=== PATIENT | male | born 1940 | race Caucasian/White ===

== ENCOUNTER 2018-08-09 07:43 | Day surgery (SDC) | payer OTHER, BC ==
[2018-08-06 14:56] VITALS: BMI 26.6
[2018-08-09 09:23] VITALS: TEMP 97.5
[2018-08-09 10:37] VITALS: BP 115/62; PULSE 62
--- NOTE | 2018-08-10 16:44 | PATH ---
Surgical Pathology Report Patient Name: LINO AVILES JR [facility]. Rec. #: [id number] /Age/Gender: 1940 (Age: 78) / M Account: [id number] Location: [facility]-ENDOSCOPY Taken: 08/09/2018 Received: 08/09/2018 Reported: 08/10/2018 Physicians: John Paul Busch M.D. Specimen(s) Received A: BX 2ND PORTION DUODENUM AND DUODENAL BULB B: BX ANTRUM C: BX GE JUNCTION D: RECTAL POLYP Clinical History Family history of esophageal cancer Postoperative diagnosis: Hiatal hernia, GERD, gastritis, duodenitis, colon polyp, diverticulosis Final Diagnosis A. DUODENUM, SECOND PORTION AND DUODENAL BULB, BIOPSY: DUODENAL MUCOSA WITH MILD ACUTE AND CHRONIC DUODENITIS. B. STOMACH, ANTRUM, BIOPSY: GASTRIC ANTRAL MUCOSA WITH MILD CHRONIC GASTRITIS. IMMUNOHISTOCHEMICAL STAIN FOR H. PYLORI IS NEGATIVE. C. GE JUNCTION, BIOPSY: SQUAMOUS MUCOSA WITH FOCAL PARAKERATOSIS, BASAL CELL HYPERPLASIA, MILD ACUTE AND CHRONIC INFLAMMATION CONSISTENT WITH MILD REFLUX ESOPHAGITIS. PAS SPECIAL STAIN FOR FUNGUS IS NEGATIVE. D. RECTUM, POLYP, BIOPSY: TUBULAR ADENOMA. Electronically Signed Martha Woody M.D. Gross Description A. Received in formalin, labeled "biopsy second portion of duodenum and duodenal bulb" are 4 perkins, irregular portions of soft tissue ranging from 0.3-0.4 cm. in greatest dimension. The specimens are submitted in toto in one cassette. B. Received in formalin, labeled "biopsy antrum" are 5 perkins, irregular portions of soft tissue ranging from 0.1-0.5 cm. in greatest dimension. The specimens are submitted in toto in one cassette. C. Received in formalin, labeled "biopsy GE junction" are 3 perkins, irregular portions of soft tissue ranging from 0.3-0.7 cm. in greatest dimension. The specimens are submitted in toto in one cassette. D. Received in formalin, labeled "biopsy rectal polyp" are 4 perkins, irregular portions of soft tissue ranging from 0.2-0.3 cm. in greatest dimension. The specimens are submitted in toto in one cassette. DL/08/09/2018 saudi/08/09/2018
== END 2018-08-09 10:30 | disposition home or self-care (01) ==
LOC: JASU-ENDO 07:43
PROVIDERS: ATTEND Internal Medicine Gastroenterology
PROC: 0DB98ZX Excision of Duodenum, Via Natural or Artificial Opening Endoscopic, Diagnostic (ICD-10-PCS; 2018-08-09)
PROC: 0DBP8ZX Excision of Rectum, Via Natural or Artificial Opening Endoscopic, Diagnostic (ICD-10-PCS; principal; 2018-08-09 08:30)
DX: Z12.11 Encounter for screening for malignant neoplasm of colon (principal); Z86.010 Personal history of colon polyps; K62.1 Rectal polyp; K64.8 Other hemorrhoids; K57.30 Diverticulosis of large intestine without perforation or abscess without bleeding; K21.9 Gastro-esophageal reflux disease without esophagitis; K44.9 Diaphragmatic hernia without obstruction or gangrene; K29.60 Other gastritis without bleeding; K29.80 Duodenitis without bleeding
CPT/HCPCS: 88305-TC; 88312-TC; 88342-TC

== ENCOUNTER 2021-09-25 05:37 | Inpatient (IN) | payer OTHER, BC ==
[2021-09-23 13:30] VITALS: BMI 26.4
[~2021-09-25 05:37] MED LIST: CEFAZOLIN 2 GM/D5W 2 GM/50 ML ML IVPB ONE
[2021-09-25] MEDS ORDERED: POVIDONE-IODINE OINTMENT 10% - 28.4 GM TUBE ONE (07:25)
[2021-09-25] MEDS ORDERED: HEPARIN NA (PORCINE) 5,000 UNITS/ML 1ML VIAL ONE (07:25)
[2021-09-25] MEDS ORDERED: LIDOCAINE HCL 0.5%, 5 MG/ML (50mL SDVIAL) ONE (07:25)
[2021-09-25] MEDS ORDERED: SUCCINYLCHOLINE CHLORIDE 200 MG/10 ML SYRINGE ONE (07:32)
[2021-09-25] MEDS ORDERED: PROPOFOL 20 ML ONE ×3 (07:32→08:06)
[2021-09-25] MEDS ORDERED: ROCURONIUM BROMIDE 50 MG/5 ML SYRINGE ONE (07:33)
[2021-09-25 07:41] LABS: INR 1.11 (0.83-1.09); PROTHROMBIN TIME (PATIENT) 12.5 SEC (9.7-13.0)
[2021-09-25] MEDS ORDERED: DEXMEDETOMIDINE HCL 200 MCG/2 ML IVPB ONE (08:03)
[2021-09-25] MEDS ORDERED: KETAMINE HCL 200 MG/20 ML VIAL ONE (08:07)
[2021-09-25] MEDS ORDERED: ceFAZolin SODIUM 1 GM VIAL IVPB ONE (08:35)
[2021-09-25] MEDS ORDERED: PHENYLEPHRINE HCL 10 MG/1 ML SINGLE DOSE VIAL ONE (10:42)
[2021-09-25] MEDS ORDERED: NEOSTIGMINE METHYLSULFATE 0.5 MG/ML - 10 ML MDV ONE (10:42)
[2021-09-25] MEDS ORDERED: PROTAMINE SULFATE 50 MG/5 ML VIAL IVPB ONE (10:45)
[2021-09-25] MEDS ORDERED: POVIDONE-IODINE OINTMENT 10% - 28.4 GM TUBE TP ONE (10:45)
[2021-09-25] MEDS ORDERED: ONDANSETRON 4 MG/2 ML VIAL IVPUSH PRN (11:11)
[2021-09-25] MEDS ORDERED: SODIUM CHLORIDE 1,000 ML IV SCH (11:15)
[2021-09-25] MEDS ORDERED: traMADol HCL 50 MG TABLET PO PRN (11:54)
[2021-09-25] MEDS ORDERED: ONDANSETRON 4 MG/2 ML VIAL ONE (12:59)
[2021-09-25] MEDS: SODIUM CHLORIDE 1,000 ML IV SCH (14:20)
[2021-09-25] MEDS ORDERED: ONDANSETRON 4 MG/2 ML VIAL IVPUSH ONE (14:59)
[2021-09-25] MEDS: DOPAMINE 400 MG/D5W - 400,000 MCG/250 ML INFUS.BAG IVPB SCH (15:21)
[2021-09-25] MEDS ORDERED: TRIMETHOBENZAMIDE HCL 200MG/2ML INJ IM ONE (15:44)
[2021-09-25] MEDS ORDERED: INSULIN SLIDING SCALE (NOVOLOG) 1 VIAL SQ SCH (16:30)
[2021-09-25] MEDS: INSULIN SLIDING SCALE (NOVOLOG) 1 VIAL SQ SCH ×2 (16:30→22:26)
[2021-09-25 18:48] LABS: HEMATOCRIT 37.7 % (35.4-49); MCH 31.3 pg (25.7-33.7); MCHC 34.4 g/dl (32.0-35.9); MEAN PLT VOLUME 7.8 fl (7.5-11.1); PLATELET COUNT 185 10^3/uL (134-434); RBC 4.15 M/mm3 (4.00-5.60); RDW 13.9 % (11.9-15.9); WHITE BLOOD COUNT 10.7 K/mm3 (4.0-10.0)
[2021-09-25 19:03] LABS: CALCIUM 8.4 mg/dL (8.5-10.1)
[2021-09-25 19:04] LABS: BLOOD UREA NITROGEN 11.3 mg/dL (7-18); MAGNESIUM 2.3 mg/dL (1.8-2.4)
[2021-09-25 19:07] LABS: CREATININE 0.7 mg/dL (0.55-1.3)
[2021-09-25 19:08] LABS: TOT PROT 6.2 g/dl (6.4-8.2)
[2021-09-25 19:09] LABS: BILIRUBIN,TOTAL 0.4 mg/dL (0.2-1)
[2021-09-25] MEDS: CEFAZOLIN 2 GM in SODIUM CHLORIDE 100 ML IVPB SCH (19:16)
[2021-09-25] MEDS ORDERED: METOCLOPRAMIDE HCL INJECTION 10 MG/2 ML VIAL IVPUSH ONE (20:03)
[2021-09-25] MEDS ORDERED: MUPIROCIN 2% TOPICAL OINTMENT FOR DECOLONIZATION NS SCH (22:00)
[2021-09-25] MEDS ORDERED: CHLORHEXIDINE GLUCONATE 4% CLEANSER FOR DECOLONIZATION TP SCH (22:00)
[2021-09-25] MEDS: CARVEDILOL 3.125 MG TABLET (FP) PO SCH (22:25)
[2021-09-25] MEDS: MUPIROCIN 2% TOPICAL OINTMENT FOR DECOLONIZATION NS SCH (22:25)
[2021-09-25] MEDS: ACETAMINOPHEN 500 MG TABLET (FP) PO PRN (22:36)
[2021-09-26] MEDS: CEFAZOLIN 2 GM in SODIUM CHLORIDE 100 ML IVPB SCH (02:13)
[2021-09-26] MEDS: NICOTINE 14 MG/24 HOURS TOPICAL PATCH TD SCH ×3 (05:59→10:45)
[2021-09-26] MEDS: INSULIN SLIDING SCALE (NOVOLOG) 1 VIAL SQ SCH ×2 (06:00→12:13)
[2021-09-26] MEDS: ACETAMINOPHEN 500 MG TABLET (FP) PO PRN (06:25)
[2021-09-26 07:51] LABS: BASO % 0.4 % (0-2.0); EOS % 0.7 % (0-4.5); HEMATOCRIT 34.2 % (35.4-49); HEMOGLOBIN 11.9 GM/dL (11.7-16.9); LYMPH % 15.6 % (8-40); MCHC 34.8 g/dl (32.0-35.9); MEAN PLT VOLUME 8.5 fl (7.5-11.1); MONO % 11.4 % (3.8-10.2); NEUT % 71.9 % (42.8-82.8); PLATELET COUNT 190 10^3/uL (134-434); RBC 3.71 M/mm3 (4.00-5.60); RDW 14.1 % (11.9-15.9); WHITE BLOOD COUNT 9.5 K/mm3 (4.0-10.0)
[2021-09-26 08:14] LABS: CALCIUM 8.2 mg/dL (8.5-10.1)
[2021-09-26 08:15] LABS: ALBUMIN 2.8 g/dl (3.4-5.0); BLOOD UREA NITROGEN 8.2 mg/dL (7-18)
[2021-09-26 08:16] LABS: CREATININE 0.7 mg/dL (0.55-1.3)
[2021-09-26 08:18] LABS: BILIRUBIN,TOTAL 0.5 mg/dL (0.2-1)
[2021-09-26] MEDS ORDERED: NICOTINE 14 MG/24 HOURS TOPICAL PATCH TD SCH (10:00)
[2021-09-26] MEDS: HEPARIN NA (PORCINE) 5,000 UNITS/ML 1ML VIAL SQ SCH ×2 (10:02→10:03)
[2021-09-26] MEDS: MUPIROCIN 2% TOPICAL OINTMENT FOR DECOLONIZATION NS SCH ×2 (10:03→10:47)
[2021-09-26] MEDS: ASPIRIN 81 MG CHEWABLE TABLETS PO SCH ×2 (10:03→10:46)
[2021-09-26] MEDS: ATORVASTATIN CA 10 MG TABLET (FP) PO SCH ×2 (10:04→10:46)
[2021-09-26] MEDS: CARVEDILOL 3.125 MG TABLET (FP) PO SCH ×2 (10:04→10:46)
[2021-09-26] MEDS: CLOPIDOGREL BISULFATE 75 MG TABLET (FP) PO SCH ×2 (10:06→10:46)
[2021-09-26] MEDS: DOPAMINE 400 MG/D5W - 400,000 MCG/250 ML INFUS.BAG IVPB SCH (12:13)
[2021-09-26] MEDS: SODIUM CHLORIDE 1,000 ML IV SCH (12:13)
[2021-09-26 14:12] VITALS: BP 124/69; PULSE 74; TEMP 98.6
== END 2021-09-26 16:01 | disposition home or self-care (01) | DRG 39 ==
LOC: J2C 05:37 → JICU 14:08
PROVIDERS: ADMIT Surgery; ATTEND Surgery
PROC: 03CJ0ZZ Extirpation of Matter from Left Common Carotid Artery, Open Approach (ICD-10-PCS; principal; 2021-09-25 08:00)
DX: I65.22 Occlusion and stenosis of left carotid artery (principal); I25.10 Atherosclerotic heart disease of native coronary artery without angina pectoris; E11.9 Type 2 diabetes mellitus without complications; E78.5 Hyperlipidemia, unspecified; I10 Essential (primary) hypertension; I70.0 Atherosclerosis of aorta; I45.10 Unspecified right bundle-branch block; Z98.61 Coronary angioplasty status; F17.210 Nicotine dependence, cigarettes, uncomplicated
CPT/HCPCS: 36415; 80053; 82550; 82553; 82962; 83735; 84100; 84484; 85025; 85027; 85610; 86850; 86900; 86901; 93005; 93010; 94010; 94760; J1644

== ENCOUNTER 2023-10-02 22:59 | Emergency (ER) | payer OTHER, BC ==
[2023-10-02 23:06] VITALS: PULSE 108; RESP 28; TEMP 97.9; BMI 25.1
[2023-10-03] VITALS: BP 136/95
[2023-10-03] MEDS ORDERED: CEFTRIAXONE 1,000 MG in DEXTROSE 5%-WATER - 50 ML IVPB ONE (00:02)
[2023-10-03] MEDS ORDERED: AZITHROMYCIN 500 MG TABLET PO ONE (00:02)
[2023-10-03] MEDS: ALBUTEROL SO4 2.5/IPRATROPIUM 0.5 INH SOL 3 ML VIAL.NEB. NEB SCH (00:13)
[2023-10-03] MEDS ORDERED: ALBUTEROL SO4 2.5/IPRATROPIUM 0.5 INH SOL 3 ML VIAL.NEB. NEB ONE (00:15)
[2023-10-03] MEDS ORDERED: CEFTRIAXONE 1 GM/50 ML BAG ONE (00:16)
[2023-10-03] MEDS ORDERED: AZITHROMYCIN 500 MG TABLET ONE (00:16)
[2023-10-03 00:33] LABS: BASO % 0.6 % (0-2.0); EOS % 3.5 % (0-4.5); HEMOGLOBIN 14.1 GM/dL (11.7-16.9); LYMPH % 29.1 % (8-40); MCH 31.1 pg (25.7-33.7); MCHC 34.5 g/dl (32.0-35.9); MEAN CELL VOLUME 90.1 fl (80-96); MEAN PLT VOLUME 8.3 fl (7.5-11.1); MONO % 9.8 % (3.8-10.2); PLATELET COUNT 239 10^3/uL (134-434); RBC 4.55 M/mm3 (4.00-5.60); RDW 13.9 % (11.9-15.9)
[2023-10-03 00:40] LABS: INR 0.97 (0.83-1.09); PROTHROMBIN TIME (PATIENT) 11.2 SEC (9.7-13.0)
[2023-10-03 00:44] LABS: ACTIVATED PTT 30.7 SECONDS (25.2-36.5)
[2023-10-03 00:47] LABS: VENOUS BASE EXCESS -1.4 mmol/L (-2-2); VENOUS O2 SATURATION 73.8 % (70-80); VENOUS PCO2 38.9 mmHg (38-52); VENOUS PH 7.394 (7.310-7.410)
[2023-10-03 00:50] LABS: POTASSIUM 3.9 mmol/L (3.5-5.1)
[2023-10-03 00:52] LABS: CALCIUM 8.9 mg/dL (8.5-10.1)
[2023-10-03 00:53] LABS: ALBUMIN 3.4 g/dl (3.4-5.0); BLOOD UREA NITROGEN 25.7 mg/dL (7-18)
[2023-10-03 00:58] LABS: BILIRUBIN,TOTAL 0.2 mg/dL (0.2-1)
[2023-10-03 01:01] LABS: N-TERMINAL BNP 182.9 pg/ml (5-450)
== END 2023-10-03 01:44 | disposition left against medical advice (07) ==
LOC: JER 22:59
PROC: 3E03329 Introduction of Other Anti-infective into Peripheral Vein, Percutaneous Approach (ICD-10-PCS; principal; 2023-10-03)
PROC: 3E0F7GC Introduction of Other Therapeutic Substance into Respiratory Tract, Via Natural or Artificial Opening (ICD-10-PCS; 2023-10-03)
DX: R09.89 Other specified symptoms and signs involving the circulatory and respiratory systems (principal); R06.02 Shortness of breath; R05.9 Cough, unspecified; R09.02 Hypoxemia; J18.9 Pneumonia, unspecified organism; Z20.822 Contact with and (suspected) exposure to COVID-19
CPT/HCPCS: 0241U-QW; 36415; 71045-TC-FY; 80053; 82803; 83605; 83880; 84484; 85025; 85610; 85730; 93005; 93010; 99285-25

== ENCOUNTER 2023-11-09 04:07 | Day surgery (SDC) | payer OTHER, BC ==
[2023-11-04 14:03] VITALS: BMI 26.9
[2023-11-09 13:47] VITALS: TEMP 98
[2023-11-09 13:51] VITALS: BP 108/52; PULSE 69; RESP 15
== END 2023-11-09 10:42 | disposition home or self-care (01) ==
LOC: JASU-ENDO 04:07
PROVIDERS: ATTEND Internal Medicine Gastroenterology
PROC: 0DJD8ZZ Inspection of Lower Intestinal Tract, Via Natural or Artificial Opening Endoscopic (ICD-10-PCS; principal; 2023-11-09 09:00)
DX: Z12.11 Encounter for screening for malignant neoplasm of colon (principal); K64.8 Other hemorrhoids; K64.4 Residual hemorrhoidal skin tags; K57.30 Diverticulosis of large intestine without perforation or abscess without bleeding; I10 Essential (primary) hypertension; E11.9 Type 2 diabetes mellitus without complications; Z79.84 Long term (current) use of oral hypoglycemic drugs
CPT/HCPCS: 82962